=== PATIENT | female | born 1950 | race Caucasian/White ===

== ENCOUNTER 2018-11-06 00:06 | Emergency (ER) | payer MEDICARE ==
[~2018-11-06] VITALS: Ht 160 cm; Wt 64.9 kg
[2018-11-06 06:06] VITALS: BP 137/59
== END 2018-11-06 06:07 | disposition home or self-care (01) ==
LOC: ED 00:06
DX: S52.501A Unspecified fracture of the lower end of right radius, initial encounter for closed fracture (principal); S52.611A Displaced fracture of right ulna styloid process, initial encounter for closed fracture; S80.02XA Contusion of left knee, initial encounter; M25.511 Pain in right shoulder; M25.521 Pain in right elbow; R51 Headache; Z59.0 Homelessness; W01.0XXA Fall on same level from slipping, tripping and stumbling without subsequent striking against object, initial encounter; Y93.89 Activity, other specified; Y92.89 Other specified places as the place of occurrence of the external cause; Y99.8 Other external cause status

== ENCOUNTER 2018-11-06 20:09 | Emergency (ER) | payer MEDICARE ==
[~2018-11-06] VITALS: Ht 160 cm; Wt 64.6 kg
[2018-11-06 20:31] VITALS: Ht 160 cm; Wt 64.6 kg
[2018-11-06 21:05] VITALS: BP 137/62
== END 2018-11-06 21:05 | disposition home or self-care (01) ==
LOC: ED 20:09
DX: S52.501A Unspecified fracture of the lower end of right radius, initial encounter for closed fracture (principal); S52.611A Displaced fracture of right ulna styloid process, initial encounter for closed fracture; X58.XXXA Exposure to other specified factors, initial encounter; Y93.89 Activity, other specified; Y92.89 Other specified places as the place of occurrence of the external cause; Y99.8 Other external cause status

== ENCOUNTER 2018-11-24 11:19 | Emergency (ER) | payer MEDICARE ==
[~2018-11-24] VITALS: Ht 160 cm; Wt 63.5 kg
[2018-11-24 11:24] VITALS: BP 145/66; Ht 160 cm; Wt 63.5 kg
== END 2018-11-24 12:09 | disposition home or self-care (01) ==
LOC: ED 11:19
DX: S52.501A Unspecified fracture of the lower end of right radius, initial encounter for closed fracture (principal); X58.XXXA Exposure to other specified factors, initial encounter; Y93.89 Activity, other specified; Y92.89 Other specified places as the place of occurrence of the external cause; Y99.8 Other external cause status